=== PATIENT | male | born 1965 | race Caucasian/White ===

== ENCOUNTER 2017-03-17 11:13 | Emergency (ER) | payer SELFPAY ==
[~2017-03-17] VITALS: Ht 185.4 cm; Wt 93.0 kg
[2017-03-17 11:26] VITALS: BP 130/89
--- NOTE | 2017-03-17 11:35 | NUR ---
XRAY IN PROGRESS AT BS
== END 2017-03-17 13:00 | disposition home or self-care (01) ==
LOC: ER 11:18
DX: M25.562 Pain in left knee (principal); X37.1XXA Tornado, initial encounter; Y93.01 Activity, walking, marching and hiking; Y92.89 Other specified places as the place of occurrence of the external cause; Y99.8 Other external cause status
CPT/HCPCS: 29505; 73564; 99284; A4606; Z7610